=== PATIENT | female | born 1995 | race Two or more races ===

== ENCOUNTER → 2017-01-31 | Outpatient (REF) | payer OTHER | LOC: M SFHCLERA 18:31 | PROVIDERS: ATTEND Physician Assistant | DX: J02.9 Acute pharyngitis, unspecified (principal) ==

== ENCOUNTER → 2017-05-04 | Outpatient (REF) | payer OTHER | LOC: M SFHCLERA 20:15 → EEVIPCON 20:15 | PROVIDERS: ATTEND Physician Assistant | DX: L02.31 Cutaneous abscess of buttock (principal) ==

== ENCOUNTER 2017-07-20 11:02 | Inpatient (IN) | payer OTHER ==
[~2017-07-20] VITALS: Ht 160 cm; Wt 94.3 kg
[2017-07-20] MEDS ORDERED: ZYRT10TA2 PO (11:14)
[2017-07-20 12:03] LABS: MEAN CORPUSCULAR HEMOGLOBIN 28.6 pg (27.0-33.0); MEAN CORPUSCULAR HGB CONC 34.6 g/dl (32.0-36.5); MEAN CORPUSCULAR VOLUME 82.8 fl (80.0-96.0); RED CELL DISTRIBUTION WIDTH 13.1 % (11.5-14.5); WHITE BLOOD COUNT 9.1 K/mm3 (4.0-10.0)
[2017-07-20 12:18] LABS: CONTROL LINE HCG INT CTR LINE PRESENT
[2017-07-20 12:30] LABS: METHADONE URINE NEGATIVE (NEGATIVE)
[2017-07-20 12:35] LABS: ALBUMIN 3.6 GM/DL (3.2-5.2); ALBUMIN/GLOBULIN RATIO 0.88 (1.00-1.93); ALKALINE PHOSPHATASE 96 U/L (45-117); ALT/SGPT 33 U/L (12-78); ANION GAP 6 MEQ/L (8-16); AST/SGOT 14 U/L (15-37); BILIRUBIN,DIRECT < 0.1 MG/DL (0.0-0.2); BILIRUBIN,TOTAL 0.2 MG/DL (0.2-1.0); BLOOD UREA NITROGEN 13 MG/DL (7-18); CALCIUM LEVEL 8.7 MG/DL (8.5-10.1); CARBON DIOXIDE LEVEL 26 MEQ/L (21-32); CHLORIDE LEVEL 109 MEQ/L (98-107); CREATININE FOR GFR 0.74 MG/DL (0.55-1.02); GLOMERULAR FILTRATION RATE > 60.0 (>60); GLUCOSE, FASTING 100 MG/DL (70-105); SODIUM LEVEL 141 MEQ/L (136-145); TOTAL PROTEIN 7.7 GM/DL (6.4-8.2)
[2017-07-20] MEDS ORDERED: DOXY100T PO (14:13)
[2017-07-20] MEDS ORDERED: ACETAMINOPHEN TAB 650MG DOSE (2X325MG) PO PRN (15:00)
[2017-07-20] MEDS ORDERED: MAALOX 30 ML SUSP *UDC PO PRN (15:00)
[2017-07-20] MEDS ORDERED: MOM 30ML SUSPENSION UDC PO PRN (15:00)
[2017-07-20] MEDS ORDERED: hydrOXYzine 50 MG TAB PO PRN (15:00)
[2017-07-20] MEDS ORDERED: METAL LOCK LOOP XX ONE (15:48)
[2017-07-20 16:16] VITALS: BP 138/90
[2017-07-20 18:00] VITALS: BP 136/91
[2017-07-20] MEDS: DOXYCYCLINE HYCLATE 100 MG TAB PO SCH (21:37)
[2017-07-20] MEDS: CETIRIZINE (ZyrTEC) 10 MG TAB PO SCH (21:37)
[2017-07-20] MEDS: traZODone 50 MG TAB PO PRN (21:37)
[2017-07-21 07:00] VITALS: BP 147/77
--- NOTE | 2017-07-21 08:32 | HPE ---
DATE OF ADMISSION: 07/20/2017 HISTORY OF PRESENT ILLNESS (HPI): Please refer to the psychiatric history and evaluation for further details on this admission. This examination and history is intended for medical issues, which may need treatment, followup or consultation on this 22-year-old female. ALLERGIES: PENICILLIN. PRIMARY CARE PROVIDER: [facility] SOCIAL HISTORY: She is single. Ethyl alcohol (EtOH) none. Smokes a couple cigarettes a day. Recreational drug use: Marijuana. PAST MEDICAL HISTORY: Depression. She has MRSA from a cyst on her buttock. PAST SURGICAL HISTORY: Tonsillectomy. CURRENT MEDICATIONS: - cetirizine 10 mg by mouth nightly - doxycycline 100 mg by mouth twice a day times seven days LABORATORY STUDIES: CBC normal. Sodium 141, potassium 4.0, chloride 103, CO2 26. BUN and creatinine 13 and 0.76. Urine positive for cannabinoids. OBJECTIVE: 22-year-old, cooperative female, in no acute distress. Height 63 inches. Weigh 94.31 kg. Body mass index (BMI) 36.8. Blood pressure 130/88. Patient is alert and oriented times three. Pupils equal and reactive to light. Extraocular movements (EOM) intact. Cornea and sclerae clear. Conjunctiva was normal. No facial asymmetry. Pharynx slightly reddened. Tongue and gum pink and moist. Tongue is midline. Neck is supple, without lymphadenopathy. No thyromegaly. No goiter. Chest clear to auscultation, without wheeze or retraction. Heart is regular. Abdomen benign. Bowel sounds positive. Genitourinary ()/rectal not done. Extremities show equal strength, full range of motion. No cyanosis, clubbing or edema. Peripheral pulses equal and palpable bilaterally. Skin is warm and dry. IMPRESSION AND PLAN: Sinus infection. Continue doxycycline 100 mg by mouth twice a day for 7 days, cetirizine 10 mg by mouth nightly.
[2017-07-21] MEDS: DOXYCYCLINE HYCLATE 100 MG TAB PO SCH ×2 (09:51→21:20)
--- NOTE | 2017-07-21 15:24 | MHHPEPDOC ---
[facility] History & Physical History and Physical DATE OF ADMISSION: Jul 20, 2017 at 14:51 LEGAL STATUS AT ADMISSION: . CHIEF COMPLAINT: . HISTORY OF THE PRESENT ILLNESS: Patient is a 22-year-old female, single, domiciled alone, no children, no job or school, has payee for the [facility] for ' autism', PPH autism, ADHD,no previous admission to psychiatry, waiting for [facility] for outpt treatment used to be in therapy & on meds in the past, PMH 'not ', tonsillectomy in 4th grade, BIB mother because of depression, anxiety, SI She reported she was in counselling for a year, about 2yrs ago for depression & anxiety & also in counselling in school from 3rd grade, ed from 3th grade. She reported she is here because of her 'Lying issues'- about from middle school, so people can give more attention & support her, 'I never been with man so no way I can be '. She reported that she recently met somebody online and went to see her for the last 2 weeks and told her that patient is to get her attention and sympathy she reported that initially she was getting what she wanted and she enjoyed it but when the friend asked her to go for [employer] appointment and get the test she had to come out with truth and she broke up with patient. She reported was feeling like 'shit', should have avoided the situation, feels guilty. She also reported that she has estranged relation with family, but still wants to live for family & friends, feels worthless, and has fluctuating course of suicidal ideations and at times thinks about drowning self in the river which is across her apartment but reports that she never went to river. She reports that her Depression consist of sad mood ,no energy, staying to self , episodic depression for few hours which goes away with enjoying music, talking with people, draw & color, cook, basketball, sleep fine, has low self esteem, never had SA, intermitted SI, not aggressive to others. Marijuana use daily, mashroom once, pain meds once years ago, PAST PSYCHIATRIC HISTORY: as per HPI ALLERGIES: Please see below. FAMILY PSYCHIATRIC HISTORY: brother- opiod use, denies any other psych illness in the family SOCIAL HISTORY: Lives alone, dependence on public assistance, has an estranged relationship with family, no close friends SUBSTANCE ABUSE HISTORY: As per HPI. PAST MEDICAL/SURGICAL HISTORY: 1. Tonsillectomy and adenoid removal in childhood MENTAL STATUS EXAMINATION: 22yo female sitting in the chair, looks appropriate for the stated age, fair hygiene and grooming, normal psychomotor activities, no abnormal movements, cooperative with fair eye contact, speech is normal in rate, rhythm, amount and prosody, mood is 'fine', affect full and mood congruent, thought process is logical and goal directed, denies suicidal and homicidal ideations, denies hallucinations, no delusions elicited, aaox3, fair immediate, short term and exterminator helper termite memory, fair insight, judgement and impulse control DIAGNOSES: 1. Depressive disorder unspecified rule out major depression. 2. Rule out adjustment disorder with depressed mood. PROBLEM LIST: 1. Depression suicidal ideation. 2. Marijuana use. INITIAL TREATMENT PLAN: 1. Patient was admitted on a 9.39 2. Complete history was obtained. 3. With patients permission, family will be contacted and database will be expanded. 4. Patients medication regimen will be reviewed and changed accordingly. 5. Patient will be provided with protected environment. 6. Patient will be treated with individual, group, and milieu therapies. 7. Patient will receive supportive psych-education. 8. Discharge planning will commence immediately. 9. Outpatient follow-up treatment will be strongly recommended. 10. The initial treatment plan will focus initially on: * Depression. * Risk for suicide. * Substance abuse. ESTIMATED LENGTH OF STAY: 3-5DAYS. TIME SPENT COUNSELING AND COORDINATING INITIAL CARE: 45 minutes. Medications Scheduled Cetirizine HCl (Zyrtec Allergy) 10 Mg Tab, 10 MG PO QHS, (Reported) Doxycycline Hyclate (Doxycycline Hyclate) 100 Mg Tab, 100 MG PO BID, (Reported) STARTED 07/18 FOR 7 DAY COURSE FOR SINUS INFECTION Allergies Coded Allergies: Penicillins (Verified Allergy, Unknown, 07/20/17) FRANCISCO MAIER MD Jul 21, 2017 15:24
[2017-07-21 18:00] VITALS: BP 150/85
[2017-07-21] MEDS ORDERED: ESCITALOPRAM OXALATE 5MG TABLET (LEXAPRO) PO SCH (21:00)
[2017-07-21] MEDS: CETIRIZINE (ZyrTEC) 10 MG TAB PO SCH (21:20)
[2017-07-21] MEDS: traZODone 50 MG TAB PO PRN (21:21)
[2017-07-21 22:17] VITALS: BP 138/86
[2017-07-22 06:53] VITALS: BP 144/81
[2017-07-22] MEDS: DOXYCYCLINE HYCLATE 100 MG TAB PO SCH (08:35)
[2017-07-22] MEDS ORDERED: TRAZO50TA PO (11:51)
[2017-07-22] MEDS ORDERED: LEXA5TAB13 PO (11:51)
--- NOTE | 2017-07-22 18:03 | MHDSPDOC ---
[facility] Discharge Summary Discharge Summary DATE OF ADMISSION: Jul 20, 2017 at 14:51 DATE OF DISCHARGE: Jul 22, 2017 at 13:15 DISCHARGE DIAGNOSES: 1. Mood disorder, unspecified, rule out adjustment disorder with depressed mood. 2.. Marijuana use disorder. REASON FOR ADMISSION: Sadness, suicidal ideations From H&P: "HISTORY OF THE PRESENT ILLNESS: Patient is a 22-year-old female, single, domiciled alone, no children, no job or school, has payee for the [facility] for 'autism', PPH autism, ADHD,no previous admission to psychiatry, waiting for [facility] for outpt treatment used to be in therapy & on meds in the past, PMH 'not ', tonsillectomy in 4th grade, BIB mother because of depression, anxiety, SI She reported she was in counselling for a year, about 2yrs ago for depression & anxiety & also in counselling in school from 3rd grade, ed from 3th grade. She reported she is here because of her 'Lying issues'- about from middle school, so people can give more attention & support her, 'I never been with man so no way I can be '. She reported that she recently met somebody online and went to see her for the last 2 weeks and told her that patient is to get her attention and sympathy she reported that initially she was getting what she wanted and she enjoyed it but when the friend asked her to go for [employer] ADMINISTR[employer] appointment and get the test she had to come out with truth and she broke up with patient. She reported was feeling like 'shit', should have avoided the situation, feels guilty. She also reported that she has estranged relation with family, but still wants to live for family & friends, feels worthless, and has fluctuating course of suicidal ideations and at times thinks about drowning self in the river which is across her apartment but reports that she never went to river. She reports that her Depression consist of sad mood ,no energy, staying to self , episodic depression for few hours which goes away with enjoying music, talking with people, draw & color, cook, basketball, sleep fine, has low self esteem, never had SA, intermitted SI, not aggressive to others. Marijuana use daily, mashroom once, pain meds once years ago, PAST PSYCHIATRIC HISTORY: as per HPI ALLERGIES: Please see below. FAMILY PSYCHIATRIC HISTORY: brother- opiod use, denies any other psych illness in the family SOCIAL HISTORY: Lives alone, dependence on public assistance, has an estranged relationship with family, no close friends SUBSTANCE ABUSE HISTORY: As per HPI. PAST MEDICAL/SURGICAL HISTORY: 1. Tonsillectomy and adenoid removal in childhood" CONSULTANTS INVOLVED: Medical evaluation and treatment TREATMENT AND PROGRESS ON THE UNIT : The patient was admitted on and was started on Lexapro, she was willing to continue outpatient treatment and work with outpatient psychiatrist, or changes in the treatment, including increasing the dose of Zyprexa. Patient responded well to the treatment and her mood was stabilized. She also reported learning new coping skills that she is planning to use after discharge. HOSPITAL COURSE: Initially after the admission. Patient initially was irritable and Demanding for discharge. She responded well to the treatment and her mood stabilized more. Denied any suicidal or homicidal ideations and also denied any craving for drugs and refused to go for outpatient treatment for substance use , even after explaining the need for it multiple times. Patient did not need any restraints. Constant observations or IM medications while being in the hospital DISCHARGE ASSESSMENT:. Patient reported that her mood has been more stable, she also denied any suicidal or homicidal ideations, intentions or plans. SHe denied any psychotic symptoms including paranoid ideations or hallucinations. MENTAL STATUS EXAMINATION ON DISCHARGE: 22yo female sitting in the chair, looks appropriate for the stated age, fair hygiene and grooming, normal psychomotor activities, no abnormal movements, cooperative with fair eye contact, speech is normal in rate, rhythm, amount and prosody, mood is 'fine', affect full and mood congruent, thought process is logical and goal directed, denies suicidal and homicidal ideations, denies hallucinations, no delusions elicited, aaox3, fair immediate, short term and assisted memory, fair insight, judgement and impulse control MEDICATIONS ON DISCHARGE: Lexapro 5 mg daily for depression and anxiety. Trazodone 50 mg daily at bedtime when necessary for insomnia PLAN/FOLLOWUP ARRANGEMENTS:, As arranged and noted by discharge planners. The amount of time spent in the coordination of care for this patient was approximately 30 minutes. Vital Signs/I&Os Vital Signs Date Time Temp Pulse Resp B/P (MAP) Pulse Ox O2 Delivery O2 Flow Rate FiO2 07/22/17 09:09 Room Air 9/7/17 06:53 98.6 92 18 144/81 (102) 07/20/17 16:16 97 Medications Scheduled Cetirizine HCl (Zyrtec Allergy) 10 Mg Tab, 10 MG PO QHS, (Reported) Doxycycline Hyclate (Doxycycline Hyclate) 100 Mg Tab, 100 MG PO BID, (Reported) STARTED 07/18 FOR 7 DAY COURSE FOR SINUS INFECTION Escitalopram Oxalate (Lexapro) 5 Mg Tab, 5 MG PO QHS for DEPRESSION for 7 Days, #7 Scheduled PRN Trazodone HCl (Trazodone HCl) 50 Mg Tab, 50 MG PO QHSP PRN for INSOMNIA for 7 Days, #7 Allergies Coded Allergies: Penicillins (Verified Allergy, Unknown, 07/20/17) FRANCISCO MAIER MD Jul 22, 2017 18:03
== END 2017-07-22 13:15 | disposition home or self-care (01) | DRG 753 ==
LOC: M ED 11:02 → M ED INP 14:51 → M PSY 16:05
PROVIDERS: ADMIT Psychiatry & Neurology Psychiatry; ATTEND Psychiatry & Neurology Psychiatry
DX: F39 Unspecified mood [affective] disorder (principal); F84.0 Autistic disorder; F17.210 Nicotine dependence, cigarettes, uncomplicated; Z81.3 Family history of other psychoactive substance abuse and dependence; Z88.0 Allergy status to penicillin; Z79.899 Other long term (current) drug therapy; Z86.14 Personal history of Methicillin resistant Staphylococcus aureus infection; F43.21 Adjustment disorder with depressed mood